=== PATIENT | female | born 1990 | race Caucasian/White ===

== ENCOUNTER → 2022-05-26 | Outpatient (CLI) | payer OTHER | END | disposition home or self-care (01) | LOC: LAB 15:43 → LAB SHORT 15:43 | DX: J02.9 Acute pharyngitis, unspecified (principal) | CPT/HCPCS: 87077; 87081; 87185 ==

== ENCOUNTER 2022-07-03 16:44 | Emergency (ER) | payer OTHER ==
[~2022-07-03] VITALS: Ht 170.2 cm; Wt 79.4 kg
[2022-07-03 17:49] LABS: Source, Urine Clean Catch
[2022-07-03 17:53] LABS: Appearance, Urine Clear (Clear); BASOPHILS ABSOLUTE AUTO 0.05 K/mm3 (0.00-0.23); BASOPHILS PERCENT AUTO 0 % (0-2); Bilirubin, Urine Neg (Neg); Blood, Urine Neg (Neg); EOSINOPHILS ABSOLUTE AUTO 0.13 K/mm3 (0.00-0.68); EOSINOPHILS PERCENT AUTO 1 % (0-6); Glucose Qualitative, Urine Neg (Neg); Hematocrit 41.1 % (33.0-51.0); Hemoglobin 13.6 g/dL (11.5-16.0); IMMATURE GRAN ABSOLUTE AUTO 0.04 K/mm3 (0.00-0.10); IMMATURE GRAN PERCENT AUTO 0 % (0-1); Ketones, Urine 3+ (Neg); LYMPHOCYTES ABSOLUTE AUTO 3.03 K/mm3 (0.84-5.20); LYMPHOCYTES PERCENT AUTO 26 % (21-46); Leukocyte Esterase, Urine Neg (Neg); MONOCYTES ABSOLUTE AUTO 0.74 K/mm3 (0.16-1.47); MONOCYTES PERCENT AUTO 6 % (4-13); Mean Corpuscular HGB 29.2 pg (26.0-34.0); Mean Corpuscular HGB Conc 33.1 g/dL (31.5-36.5); Mean Corpuscular Volume 88 fL (80-100); Mean Platelet Volume 10.6 fL (9.1-12.4); NEUTROPHILS ABSOLUTE AUTO 7.55 K/mm3 (1.96-9.15); NEUTROPHILS PERCENT AUTO 66 % (41-73); Nitrite, Urine Neg (Neg); Platelet Count 253 K/mm3 (150-400); Protein, Urine Neg (Neg); RDW Coefficient Variation 13.6 % (11.7-14.2); RDW Standard Deviation 44.3 fL (35.1-46.3); Red Blood Cell Count 4.65 M/mm3 (3.80-5.20); Specific Gravity, Urine 1.015 (1.003-1.022); Urobilinogen, Urine NORM (Normal); White Blood Cell Count 11.54 K/mm3 (4.00-11.30)
[2022-07-03 18:10] LABS: Color, Urine Pale Yellow (P-Yellow)
[2022-07-03 18:21] LABS: Albumin/Globulin Ratio 1.1 (0.8-1.8); Bilirubin, Total 0.3 mg/dL (0.1-1.0); Bun/Creatinine Ratio 20.3 (12.0-20.0); Calcium, Blood 9.4 mg/dL (8.5-10.1); Creatinine, Blood 0.64 mg/dL (0.40-1.00); Globulin, Blood 3.8 g/dL (2.2-4.0); Potassium, Blood 3.6 mmol/L (3.5-5.5); Total Protein, Blood 7.8 g/dL (6.4-8.2)
== END 2022-07-03 21:20 | disposition home or self-care (01) ==
LOC: ER 16:44
PROVIDERS: Physician Assistant
DX: R10.84 Generalized abdominal pain (principal); N83.11 Corpus luteum cyst of right ovary
CPT/HCPCS: 36415; 74177; 80053; 81003; 81025; 85025; Q9967

== ENCOUNTER 2022-09-07 08:18 | Day surgery (SDC) | payer OTHER ==
[~2022-09-07] VITALS: Ht 170.2 cm; Wt 79.4 kg
[2022-09-07] MEDS ORDERED: FISH OIL 1,2001 EAC7 (08:39)
[2022-09-07] MEDS ORDERED: Vitamin D1000 UNI1 (08:39)
== END 2022-09-07 10:34 | disposition home or self-care (01) ==
LOC: ORSCSDS 08:18
PROVIDERS: Internal Medicine Gastroenterology
PROC: 0DBL8ZX Excision of Transverse Colon, Via Natural or Artificial Opening Endoscopic, Diagnostic (ICD-10-PCS; principal; 2022-09-07 09:30)
DX: K62.5 Hemorrhage of anus and rectum (principal); Z80.0 Family history of malignant neoplasm of digestive organs; D12.3 Benign neoplasm of transverse colon; K64.8 Other hemorrhoids
CPT/HCPCS: 88305; J2250; J2704; J7120

== ENCOUNTER → 2024-01-24 | Outpatient (CLI) | payer OTHER ==
[~2024-01-24] MED LIST: FISH OIL 1,2001 EAC7; Vitamin D1000 UNI1
[2024-01-31 21:32] LABS: HPV HIGH RISK BY TMA Not Detected; HPV SOURCE Cervical
== END ==
LOC: LAB 15:43 → LAB SHORT 15:43
PROVIDERS: Family Medicine
DX: Z01.419 Encounter for gynecological examination (general) (routine) without abnormal findings (principal)
CPT/HCPCS: 87624; G0123